=== PATIENT | male | born 2005 | race Hispanic/Latino ===

== ENCOUNTER 2025-01-17 00:08 | Emergency (ER) | payer SELFPAY ==
[~2025-01-17] VITALS: Ht 167.6 cm; Wt 47.6 kg
[2025-01-17 00:57] LABS: BASO # 0.1 10^3/uL (0.0-0.2); BASO % 0.8 % (0.0-1.0); EOS # 0.0 10^3/uL (0.0-0.5); EOS % 0.3 % (0.0-3.0); LYMPH # 1.5 10^3/uL (1.5-5.0); LYMPH % 23.6 % (24.0-44.0); MONO # 0.3 10^3/uL (0.0-0.8); MONO % 5.1 % (2.0-8.0); NEUTROPHILS # 4.4 10^3/uL (1.5-8.5); NEUTROPHILS % 69.9 % (36.0-66.0); PLATELET COUNT, AUTOMATED 266 10^3/uL (150-450)
[2025-01-17 01:19] LABS: CALCIUM LEVEL 10.0 MG/DL (8.5-10.1); CARBON DIOXIDE LEVEL 29 MMOL/L (20-31); CHLORIDE LEVEL 102 MMOL/L (98-107); CK-MB VALUE MASS 1.0 NG/ML (<3.6); CPK CREATINE PHOSPHOKINASE 132 U/L (46-171); CREATININE FOR GFR 0.79 MG/DL (0.70-1.30); GLOMERULAR FILTRATION RATE > 90.0 (>60); MB/CK RELATIVE INDEX 0.75 (< OR =4); POTASSIUM SERUM 4.2 MMOL/L (3.5-5.1); SODIUM LEVEL 140 MMOL/L (136-145)
[2025-01-17 02:51] LABS: CK-MB VALUE MASS < 1.0 NG/ML (<3.6)
[2025-01-17 03:17] LABS: CPK CREATINE PHOSPHOKINASE 129 U/L (46-171)
[2025-01-17] MEDS ORDERED: MELO15TA28 PO (05:26)
[2025-01-17] MEDS: MELOXICAM 7.5 MG TAB PO STA (05:44)
[2025-01-17 05:55] VITALS: BP 131/72; TEMP 97.6; O2SAT 98
== END 2025-01-17 05:55 | disposition home or self-care (01) ==
LOC: M ED 00:08
DX: M94.0 Chondrocostal junction syndrome [Tietze] (principal); F17.200 Nicotine dependence, unspecified, uncomplicated; Z79.899 Other long term (current) drug therapy